=== PATIENT | female | born 1995 | race Two or more races ===

== ENCOUNTER 2017-05-08 18:40 | Emergency (ER) | payer MEDICAID ==
[~2017-05-08] VITALS: Ht 167.6 cm; Wt 64.5 kg
[2017-05-08 19:18] LABS: Basophils # (auto) 0 uL; Basophils % (auto) 0.5 % (0.0-2.0); Eosinophils # (auto) 0.1 uL; Eosinophils % (auto) 1.2 % (0.0-7.0); Hematocrit 40.4 % (36.0-46.0); Hemoglobin 13.4 g/dL (12.2-16.2); Lymphocytes # (auto) 2.2 uL; Lymphocytes % (auto) 28.1 % (10.0-50.0); Mean Corpuscular Hemoglobin 29.5 pg (28.0-32.0); Mean Corpuscular Hgb Conc. 33.1 g/dL (32.0-36.0); Mean Corpuscular Volume 89.2 fL (80.0-100.0); Mean Platelet Volume 9.1 fL (6.9-10.8); Monocytes # (auto) 0.5 uL; Monocytes % (auto) 6.6 % (0.0-12.0); Neutrophils % (auto) 63.6 % (37.0-80.0); Nucleated Red Blood Cells % 0.1 %; Platelet Count (auto) 237 10^3/uL (140-450); Red Cell Distribution Width 12.7 % (11.8-14.3); White Blood Cell 7.8 10^3/uL (4.4-10.8)
[2017-05-08 19:42] LABS: Albumin 4.3 g/dL (3.4-5.0); BUN/Creatinine Ratio 18.3; Bilirubin, Total 0.4 mg/dL (0.2-1.0); Calcium 8.8 mg/dL (8.5-10.1); Potassium 3.8 mmol/L (3.5-5.1); Total Protein 7.9 g/dL (6.4-8.2)
[2017-05-08 22:23] VITALS: BP 110/63
[2017-05-08] MEDS ORDERED: ACETAMINOPHEN 325 MG TAB PO ONE (22:45)
[2017-05-08] MEDS ORDERED: ONDANSETRON ODT 4 MG TAB PO ONE (23:15)
== END 2017-05-08 23:36 | disposition home or self-care (01) ==
LOC: ER 18:45
DX: N92.0 Excessive and frequent menstruation with regular cycle (principal); J45.909 Unspecified asthma, uncomplicated
CPT/HCPCS: 36415; 76856; 80053; 84702; 85025; 99285; Q0162

== ENCOUNTER 2017-06-01 11:58 | Emergency (ER) | payer MEDICAID ==
[~2017-06-01] VITALS: Ht 167.6 cm; Wt 63.0 kg
[2017-06-01] MEDS ORDERED: KETOROLAC TROMETH 60MG/2ML VIAL IM ONE (13:15)
[2017-06-01 16:22] VITALS: BP 108/27
== END 2017-06-01 16:33 | disposition home or self-care (01) ==
LOC: ER 11:58
DX: S20.212A Contusion of left front wall of thorax, initial encounter (principal); E07.89 Other specified disorders of thyroid; J45.909 Unspecified asthma, uncomplicated; W19.XXXA Unspecified fall, initial encounter; Y93.89 Activity, other specified; Y99.8 Other external cause status; Y92.89 Other specified places as the place of occurrence of the external cause
CPT/HCPCS: 71101; 96372; 99284; J1885

== ENCOUNTER 2018-10-08 21:05 | Observation (INO) | payer MEDICAID ==
[2018-10-08 23:32] LABS: Basophils # (auto) 0.1 uL; Basophils % (auto) 0.7 % (0.0-2.0); Eosinophils # (auto) 0.1 uL; Eosinophils % (auto) 0.7 % (0.0-7.0); Hematocrit 34.5 % (36.0-46.0); Hemoglobin 11.8 g/dL (12.2-16.2); Lymphocytes # (auto) 1.9 uL; Lymphocytes % (auto) 16.7 % (10.0-50.0); Mean Corpuscular Hemoglobin 31.3 pg (28.0-32.0); Mean Corpuscular Hgb Conc. 34.2 g/dL (32.0-36.0); Mean Corpuscular Volume 91.3 fL (80.0-100.0); Monocytes # (auto) 0.6 uL; Monocytes % (auto) 5.4 % (0.0-12.0); Neutrophils # (auto) 8.8 uL; Neutrophils % (auto) 76.5 % (37.0-80.0); Platelet Count (auto) 214 10^3/uL (140-450); Red Blood Cells 3.78 10^6/uL (4.0-5.20); White Blood Cell 11.5 10^3/uL (4.4-10.8)
[2018-10-08 23:45] LABS: INR 0.86 (0.9-1.15); Partial Thromboplastin Time 25.5 sec (23.78-33.04); Prothrombin Time 9.3 sec (9.27-12.13)
[2018-10-08 23:52] LABS: BUN/Creatinine Ratio 16.7; Calcium 8.2 mg/dL (8.5-10.1); Potassium 4.1 mmol/L (3.5-5.1)
[2018-10-08 23:55] LABS: Bilirubin, Total 0.1 mg/dL (0.2-1.0); Total Protein 6.5 g/dL (6.4-8.2)
[2018-10-08 23:58] LABS: Urine Amorphous Crystal FEW /hpf (None Seen); Urine Bacteria FEW /hpf (None Seen); Urine Blood Negative /uL (Negative); Urine Mucus FEW (None Seen); Urine WBC 1 /hpf (0 - 5)
[2018-10-09] MEDS ORDERED: PREN-153 OR (00:11)
[2018-10-10 08:06] LABS: RPR Non Reactive (Non Reactive)
[2018-10-10 11:06] LABS: Rubella Antibodies, IgG 1.25 index (Immune >0.99)
== END 2018-10-08 23:28 | disposition home or self-care (01) | DRG 566 ==
LOC: LDRP 21:05
PROVIDERS: ADMIT Specialist; ATTEND Specialist
DX: O99.89 Other specified diseases and conditions complicating pregnancy, childbirth and the puerperium (principal); M54.9 Dorsalgia, unspecified; M79.604 Pain in right leg; M79.605 Pain in left leg; O26.892 Other specified pregnancy related conditions, second trimester; R10.30 Lower abdominal pain, unspecified; N89.8 Other specified noninflammatory disorders of vagina; Z3A.20 20 weeks gestation of pregnancy
CPT/HCPCS: 36415; 59025; 76805; 80053; 81001; 81002; 85025; 85610; 85730; 86592; 86762; 86790; 86850; 86900; 86901; 87340; G0378

== ENCOUNTER 2018-10-16 15:15 | Observation (INO) | payer MEDICAID ==
[~2018-10-16 15:15] MED LIST: PREN-153 OR
== END 2018-10-16 16:30 | disposition home or self-care (01) | DRG 566 ==
LOC: LDRP 15:15
PROVIDERS: ADMIT Obstetrics & Gynecology; ATTEND Obstetrics & Gynecology
DX: O26.852 Spotting complicating pregnancy, second trimester (principal); O26.892 Other specified pregnancy related conditions, second trimester; R10.9 Unspecified abdominal pain; Z3A.21 21 weeks gestation of pregnancy
CPT/HCPCS: 59025; 76815; 81002; G0378

== ENCOUNTER 2018-11-11 02:05 | Observation (INO) | payer MEDICAID | END 2018-11-11 04:55 | disposition home or self-care (01) | DRG 566 | LOC: LDRP 02:05 | PROVIDERS: ADMIT Specialist; ATTEND Specialist | DX: O26.892 Other specified pregnancy related conditions, second trimester (principal); N89.8 Other specified noninflammatory disorders of vagina; R10.2 Pelvic and perineal pain; R11.0 Nausea; R10.31 Right lower quadrant pain; Z3A.25 25 weeks gestation of pregnancy | CPT/HCPCS: 59025; 76705; 81002; G0378 ==

== ENCOUNTER 2018-12-30 09:30 | Observation (INO) | payer MEDICAID ==
[~2018-12-30] VITALS: Ht 30.5 cm; Wt 0.5 kg
[2018-12-30] MEDS ORDERED: LACTATED RINGER'S 1,000 ML IV ONE (10:07)
[2018-12-30] MEDS ORDERED: BETAMETHASONE ACET (6MG/ML) 5ML VIAL ONE (10:11)
[2018-12-30] MEDS ORDERED: TERBUTALINE SULFATE 1 MG/ML 1ML VIAL SC ONE (10:11)
[2018-12-30] MEDS: TERBUTALINE SULFATE 1 MG/ML 1ML VIAL SC SCH ×2 (10:15→10:35)
[2018-12-30] MEDS ORDERED: NIFEdipine 10 MG CAP PO ONE (10:30)
[2018-12-30 13:22] LABS: Urine Bacteria MOD /hpf (None Seen); Urine Blood Negative /uL (Negative); Urine Mucus FEW (None Seen); Urine Specific Gravity 1.022 (1.001-1.035); Urine WBC 4 /hpf (0 - 5)
[2018-12-30] MEDS ORDERED: BETAMETHASONE ACET (6MG/ML) 5ML VIAL IM SCH (22:00)
[2018-12-31] MEDS ORDERED: NIF10C GT (19:02)
== END 2018-12-30 12:10 | disposition home or self-care (01) | DRG 563 ==
LOC: LDRP 09:30
PROVIDERS: ADMIT Specialist; ATTEND Specialist
DX: O60.03 Preterm labor without delivery, third trimester (principal); O26.853 Spotting complicating pregnancy, third trimester; O62.9 Abnormality of forces of labor, unspecified; Z3A.32 32 weeks gestation of pregnancy
CPT/HCPCS: 59025; 76818; 81001; 81002; 84443; 96372; G0378; J0702; J3105

== ENCOUNTER 2018-12-31 18:42 | Observation (INO) | payer MEDICAID ==
[~2018-12-31] VITALS: Ht 165.1 cm; Wt 81.6 kg
[2018-12-31] MEDS ORDERED: BETAMETHASONE ACET (6MG/ML) 5ML VIAL IM ONE (19:00)
[2018-12-31] MEDS ORDERED: NIF10C GT (19:02)
== END 2018-12-31 19:52 | disposition home or self-care (01) | DRG 563 ==
LOC: LDRP 18:42
PROVIDERS: ADMIT Specialist; ATTEND Specialist
DX: O60.03 Preterm labor without delivery, third trimester (principal); O46.93 Antepartum hemorrhage, unspecified, third trimester; O62.9 Abnormality of forces of labor, unspecified; Z3A.32 32 weeks gestation of pregnancy
CPT/HCPCS: 59025; 81002; 96372; G0378

== ENCOUNTER 2019-01-02 12:19 | Observation (INO) | payer MEDICAID ==
[~2019-01-02 12:19] MED LIST changes: +NIF10C GT
[2019-01-02] MEDS ORDERED: TERBUTALINE SULFATE 1 MG/ML 1ML VIAL SC ONE (13:30)
== END 2019-01-02 14:00 | disposition home or self-care (01) | DRG 563 ==
LOC: LDRP 12:19
PROVIDERS: ADMIT Obstetrics & Gynecology; ATTEND Obstetrics & Gynecology
DX: O60.03 Preterm labor without delivery, third trimester (principal); Z3A.32 32 weeks gestation of pregnancy
CPT/HCPCS: 59025; 81002; 96372; G0378; J3105

== ENCOUNTER 2019-01-04 20:24 | Observation (INO) | payer MEDICAID ==
[~2019-01-04] VITALS: Ht 165.1 cm; Wt 63.5 kg
[2019-01-04] MEDS ORDERED: TERBUTALINE SULFATE 1 MG/ML 1ML VIAL SC PRN (21:15)
[2019-01-04] MEDS ORDERED: NIFEdipine 10 MG CAP PO ONE (21:30)
== END 2019-01-04 22:34 | disposition home or self-care (01) | DRG 566 ==
LOC: LDRP 20:24
PROVIDERS: ADMIT Specialist; ATTEND Specialist
DX: O26.893 Other specified pregnancy related conditions, third trimester (principal); R10.9 Unspecified abdominal pain; Z3A.33 33 weeks gestation of pregnancy
CPT/HCPCS: 59025; 76818; 81002; G0378

== ENCOUNTER 2019-01-07 18:57 | Observation (INO) | payer MEDICAID | END 2019-01-07 21:10 | disposition home or self-care (01) | DRG 563 | LOC: LDRP 18:57 | PROVIDERS: ADMIT Obstetrics & Gynecology; ATTEND Obstetrics & Gynecology | DX: O60.03 Preterm labor without delivery, third trimester (principal); Z3A.33 33 weeks gestation of pregnancy | CPT/HCPCS: 59025; 76818; 81002; G0378 ==

== ENCOUNTER 2019-01-11 19:00 | Observation (INO) | payer MEDICAID ==
[~2019-01-11] VITALS: Ht 165.1 cm; Wt 81.6 kg
[2019-01-11] MEDS ORDERED: LACTATED RINGER'S 1,000 ML IV ONE (20:53)
[2019-01-11] MEDS ORDERED: TERBUTALINE SULFATE 1 MG/ML 1ML VIAL SC SCH (21:00)
== END 2019-01-11 22:30 | disposition home or self-care (01) | DRG 563 ==
LOC: LDRP 19:00
PROVIDERS: ADMIT Obstetrics & Gynecology; ATTEND Obstetrics & Gynecology
DX: O60.03 Preterm labor without delivery, third trimester (principal); E03.9 Hypothyroidism, unspecified; O99.283 Endocrine, nutritional and metabolic diseases complicating pregnancy, third trimester; O99.343 Other mental disorders complicating pregnancy, third trimester; F32.9 Major depressive disorder, single episode, unspecified; Z3A.34 34 weeks gestation of pregnancy
CPT/HCPCS: 59025; 76818; 81002; 96372; G0378; J3105; 96365

== ENCOUNTER 2019-02-07 02:01 | Observation (INO) | payer MEDICAID | END 2019-02-07 03:44 | disposition home or self-care (01) | DRG 566 | LOC: LDRP 02:01 | PROVIDERS: ADMIT Obstetrics & Gynecology; ATTEND Obstetrics & Gynecology | DX: O62.9 Abnormality of forces of labor, unspecified (principal); E03.9 Hypothyroidism, unspecified; O99.343 Other mental disorders complicating pregnancy, third trimester; F32.9 Major depressive disorder, single episode, unspecified; Z3A.38 38 weeks gestation of pregnancy; O99.283 Endocrine, nutritional and metabolic diseases complicating pregnancy, third trimester | CPT/HCPCS: 59025; 81002; G0378; 96365 ==

== ENCOUNTER 2019-02-09 08:36 | Observation (INO) | payer MEDICAID ==
[~2019-02-09] VITALS: Ht 165.1 cm; Wt 61.2 kg
== END 2019-02-09 09:39 | disposition home or self-care (01) | DRG 566 ==
LOC: LDRP 08:36
PROVIDERS: ADMIT Obstetrics & Gynecology; ATTEND Obstetrics & Gynecology
DX: O62.9 Abnormality of forces of labor, unspecified (principal); E03.9 Hypothyroidism, unspecified; O99.283 Endocrine, nutritional and metabolic diseases complicating pregnancy, third trimester; O99.343 Other mental disorders complicating pregnancy, third trimester; F99 Mental disorder, not otherwise specified; Z3A.38 38 weeks gestation of pregnancy
CPT/HCPCS: 59025; 81002; G0378

== ENCOUNTER 2019-02-11 07:23 | Observation (INO) | payer MEDICAID | END 2019-02-11 08:30 | disposition home or self-care (01) | DRG 566 | LOC: LDRP 07:23 | PROVIDERS: ADMIT Specialist; ATTEND Specialist | DX: O62.9 Abnormality of forces of labor, unspecified (principal); O99.343 Other mental disorders complicating pregnancy, third trimester; F32.9 Major depressive disorder, single episode, unspecified; O99.283 Endocrine, nutritional and metabolic diseases complicating pregnancy, third trimester; E03.9 Hypothyroidism, unspecified; Z3A.38 38 weeks gestation of pregnancy | CPT/HCPCS: 59025; 81002; G0378 ==

== ENCOUNTER 2019-02-13 17:15 | Observation (INO) | payer MEDICAID ==
[~2019-02-13 17:15] MED LIST changes: -NIF10C GT
== END 2019-02-13 18:50 | disposition home or self-care (01) | DRG 566 ==
LOC: LDRP 17:15
PROVIDERS: ADMIT Specialist; ATTEND Specialist
DX: O62.9 Abnormality of forces of labor, unspecified (principal); F32.9 Major depressive disorder, single episode, unspecified; O99.343 Other mental disorders complicating pregnancy, third trimester; Z3A.38 38 weeks gestation of pregnancy
CPT/HCPCS: 59025; 81002; G0378

== ENCOUNTER 2019-02-19 06:15 | Inpatient (IN) | payer MEDICAID ==
[2019-02-19] VITALS (14 sets, daily range): BP systolic 98–114; BP diastolic 43–67
[~2019-02-19] VITALS: Ht 165.1 cm; Wt 84.8 kg
[2019-02-19] MEDS: LACTATED RINGER'S 1,000 ML IV SCH ×3 (06:39→23:00)
[2019-02-19 07:27] LABS: Basophils # (auto) 0.1 uL; Basophils % (auto) 0.6 % (0.0-2.0); Eosinophils # (auto) 0 uL; Eosinophils % (auto) 0.3 % (0.0-7.0); Hemoglobin 12.3 g/dL (12.2-16.2); Lymphocytes # (auto) 2.3 uL; Lymphocytes % (auto) 23.3 % (10.0-50.0); Mean Corpuscular Hemoglobin 29.2 pg (28.0-32.0); Mean Corpuscular Hgb Conc. 33.3 g/dL (32.0-36.0); Mean Corpuscular Volume 87.5 fL (80.0-100.0); Monocytes # (auto) 0.5 uL; Monocytes % (auto) 5.6 % (0.0-12.0); Neutrophils # (auto) 6.8 uL; Neutrophils % (auto) 70.2 % (37.0-80.0); Nucleated Red Blood Cells % 0.1 %; Platelet Count (auto) 148 10^3/uL (140-450); Red Blood Cells 4.22 10^6/uL (4.0-5.20); White Blood Cell 9.7 10^3/uL (4.4-10.8)
[2019-02-19 07:40] LABS: Albumin 2.9 g/dL (3.4-5.0); BUN/Creatinine Ratio 14.9; Calcium 8.8 mg/dL (8.5-10.1); Potassium 3.7 mmol/L (3.5-5.1)
[2019-02-19 07:42] LABS: Bilirubin, Total 0.4 mg/dL (0.2-1.0); Total Protein 6.7 g/dL (6.4-8.2)
[2019-02-19 07:43] LABS: INR < 0.93 (0.9-1.15); Partial Thromboplastin Time 25.9 sec (23.64-32.05)
[2019-02-19 07:48] LABS: Urine Bacteria MANY /hpf (None Seen); Urine Blood Negative /uL (Negative); Urine Mucus FEW (None Seen); Urine Specific Gravity 1.026 (1.001-1.035); Urine WBC 109 /hpf (0 - 5)
[2019-02-19] MEDS ORDERED: TETRACAINE 1% INJ 2 ML VIAL IJ ONE (10:54)
[2019-02-19] MEDS ORDERED: MORPHINE SULF(PF) 0.5MG/ML 10ML VIAL ONE (10:59)
[2019-02-19] MEDS ORDERED: fentaNYL CITRATE 100 MCG/2 ML VL ONE (10:59)
[2019-02-19] MEDS ORDERED: MIDAZOLAM HCL 1MG/1ML-2 ML VIAL ONE (10:59)
[2019-02-19] MEDS ORDERED: LACT. RINGERS/OXYTOCIN 20UNITS 1,000 ML IV SCH (11:35)
[2019-02-19] MEDS ORDERED: OXYTOCIN 10 UNIT/ML 10ML VIAL ONE (11:40)
[2019-02-19] MEDS ORDERED: ceFAZolin 1GM VL ONE (11:40)
[2019-02-19] MEDS ORDERED: ONDANSETRON HCL 4 MG/2 ML VIAL IV PRN (11:45)
[2019-02-19] MEDS ORDERED: diphenhdrAMINE HCL 50 MG/1 ML VL IV PRN (11:45)
[2019-02-19] MEDS ORDERED: ceFAZolin 1GM/50ML 50 ML IV SCH (11:45)
[2019-02-19] MEDS ORDERED: NALOXONE HCL 0.4 MG/ML VIAL IV PRN (11:45)
[2019-02-19] MEDS ORDERED: MORPHINE SULFATE 4 MG/ML SYR/VIAL IV PRN (11:45)
[2019-02-19] MEDS ORDERED: DexAMETHasone SOD PHOS 10MG/1ML VIAL INJ IV PRN (11:45)
[2019-02-19] MEDS ORDERED: ePHEDrine SULFATE 50 MG/ML AMP IV PRN (11:45)
[2019-02-19] MEDS ORDERED: HYDROmorphone HCL 2 MG/ML VL IV PRN (11:45)
[2019-02-19] MEDS ORDERED: LABETALOL HCL 5 MG/ML 4ML SYRINGE IV PRN (11:45)
[2019-02-19] MEDS ORDERED: MIDAZOLAM HCL 1MG/1ML-2 ML VIAL IV PRN (11:45)
[2019-02-19] MEDS ORDERED: KETOROLAC TROMETH 15 mg/ml 1ML VL IV PRN (11:45)
[2019-02-19] MEDS: ONDANSETRON HCL 4 MG/2 ML VIAL IV PRN ×2 (12:32→16:15)
[2019-02-19] MEDS ORDERED: PROMETHAZINE HCL 25 MG/ML 1ML IM ONE (13:03)
[2019-02-19] MEDS ORDERED: PROMETHAZINE HCL 25 MG/ML 1ML ONE (13:05)
--- NOTE | 2019-02-19 13:20 | NUR ---
Post Op for LDRP: Received patient from PACU via bed to room 7B, report received from Sabine AUTOMATION CONTROL TECHNICIAN on stable patient. Patient A/A/Ox4, abdominal binder and bilateral SCD's are in place, IV fluids placed on pump and infusing per order, incisional site dressing clean/dry/intact and Vasquez Catheter to gravity draining clear yellow urine. Incentive Spirometer at bedside and instruction on proper use with return demonstration done by patient. Pts fundus is 1 below umbilicus, firm, scant rubra bleeding. Will continue to monitor.
[2019-02-19] MEDS ORDERED: ACETAMINOPHEN IV 1000 MG/100ML (10MG/ML) IV PRN (19:00)
[2019-02-19] MEDS: ceFAZolin 1GM/50ML 50 ML IV SCH (20:09)
[2019-02-19 20:21] LABS: Basophils # (auto) 0 uL; Basophils % (auto) 0.2 % (0.0-2.0); Eosinophils # (auto) 0 uL; Hemoglobin 11.7 g/dL (12.2-16.2); Lymphocytes # (auto) 1.1 uL; Mean Corpuscular Hemoglobin 29.5 pg (28.0-32.0); Mean Corpuscular Hgb Conc. 33.3 g/dL (32.0-36.0); Mean Corpuscular Volume 88.6 fL (80.0-100.0); Monocytes # (auto) 0.7 uL; Monocytes % (auto) 4.6 % (0.0-12.0); Neutrophils % (auto) 88.2 % (37.0-80.0); Platelet Count (auto) 131 10^3/uL (140-450); Red Blood Cells 3.96 10^6/uL (4.0-5.20); White Blood Cell 15.9 10^3/uL (4.4-10.8)
[2019-02-20] VITALS (9 sets, daily range): BP systolic 102–123; BP diastolic 47–71
--- NOTE | 2019-02-20 01:45 | NUR ---
Ambulation: Patient OOB with standby assistance by RN. Patient ambulated to bedside chair. Pericare provided with minimal assistance from patient. Clean gown provided and bed linen changed. Patient request to stay in chair for a while.
[2019-02-20] MEDS ORDERED: ACETAMINOPHEN IV 1000 MG/100ML (10MG/ML) IV PRN (03:30)
[2019-02-20] MEDS: ceFAZolin 1GM/50ML 50 ML IV SCH ×2 (03:50→12:45)
[2019-02-20] MEDS ORDERED: ACETAMINOPHEN IV 1000 MG/100ML (10MG/ML) IV ONE (05:30)
[2019-02-20 06:33] LABS: Basophils # (auto) 0 uL; Basophils % (auto) 0.2 % (0.0-2.0); Eosinophils # (auto) 0 uL; Eosinophils % (auto) 0.3 % (0.0-7.0); Hematocrit 34.1 % (36.0-46.0); Hemoglobin 11.6 g/dL (12.2-16.2); Lymphocytes # (auto) 1.7 uL; Lymphocytes % (auto) 14.4 % (10.0-50.0); Mean Corpuscular Hemoglobin 29.9 pg (28.0-32.0); Mean Corpuscular Hgb Conc. 33.9 g/dL (32.0-36.0); Mean Corpuscular Volume 88.2 fL (80.0-100.0); Monocytes # (auto) 0.8 uL; Monocytes % (auto) 6.7 % (0.0-12.0); Neutrophils # (auto) 9.2 uL; Neutrophils % (auto) 78.4 % (37.0-80.0); Platelet Count (auto) 130 10^3/uL (140-450); Red Blood Cells 3.87 10^6/uL (4.0-5.20); Red Cell Distribution Width 13.9 % (11.8-14.3); White Blood Cell 11.8 10^3/uL (4.4-10.8)
[2019-02-20 08:07] LABS: RPR Non Reactive (Non Reactive)
[2019-02-20] MEDS ORDERED: SIMETHICONE 80 MG CHEWABLE TABLET PO PRN (10:30)
[2019-02-20] MEDS ORDERED: HYDROcodone-ACET 5/325MG TAB PO PRN (10:30)
[2019-02-20] MEDS: HYDROcodone-ACET 5/325MG TAB PO PRN (10:40)
[2019-02-20] MEDS: DOCUSATE SOD 100 MG CAP PO SCH (10:45)
[2019-02-20] MEDS: IBUPROFEN 800 MG TAB PO PRN (15:37)
[2019-02-21] MEDS: DOCUSATE SOD 100 MG CAP PO SCH ×3 (01:32→21:54)
--- NOTE | 2019-02-21 02:10 | NUR ---
REPORT RECEIVED FROM Akash NOEL RN ON STABLE PATIENT, ASSUMING CARE. NO DISTRESS NOTED.
--- NOTE | 2019-02-21 02:25 | NUR ---
REPORT ON STABLE PT GIVEN TO Chandra AMEZCUA. RELINQUISHED CARE.
[2019-02-21 03:10] VITALS: BP 115/73
--- NOTE | 2019-02-21 03:14 | NUR ---
PT STATES SHE HAS PASSED FLATUS, DR. THOMPSON NOTIFIED, ADVANCING DIET PER DR. THOMPSON ORDER TO SOFT DIET. WILL CONTINUE TO MONITOR.
[2019-02-21] MEDS: HYDROcodone-ACET 5/325MG TAB PO PRN ×3 (03:28→21:55)
[2019-02-21 06:30] VITALS: BP 119/64
[2019-02-21] MEDS: IBUPROFEN 800 MG TAB PO PRN ×3 (06:34→23:22)
[2019-02-21 10:50] VITALS: BP 109/62
[2019-02-21 14:58] VITALS: BP 124/66
[2019-02-21] MEDS ORDERED: TETANUS-DIPTH-ACEL PERTUSSIS 0.5ML SYRG IM ONE (18:30)
[2019-02-21 19:00] VITALS: BP 128/69
--- NOTE | 2019-02-21 19:00 | NUR ---
IV removal IV DC'd with sterile technique, catheter fully intact. Pressure dressing applied to site. Patient tolerated procedure well.
[2019-02-21 22:54] VITALS: BP 109/69
[2019-02-22 02:51] VITALS: BP 114/70
[2019-02-22] MEDS: HYDROcodone-ACET 5/325MG TAB PO PRN (04:10)
--- NOTE | 2019-02-22 05:00 | NUR ---
Chandra Currie CNM at bedside, trent removed by CNM and steri strips applied.
[2019-02-22 06:50] VITALS: BP 119/71
--- NOTE | 2019-02-22 08:00 | NUR ---
Discharge: Discharge instructions given as ordered. Pt encouraged to follow up with CLIP AND HANGER ATTACHER as instructed. All questions and concerns addressed. Patient verbalized understanding. Medication reconciliation completed and copy given to patient. All required/requested vaccines given and copies of vaccinations given to patient. Patient encouraged to prepare to depart unit.
--- NOTE | 2019-02-22 09:05 | NUR ---
Discharge: Patient taken to vehicle ambulatory via steady gait, pt declined wheelchair with all personal belongings, accompanied by staff and family members. No distress noted at time of departure, no adverse changes in status since initial assessment.
== END 2019-02-22 09:05 | disposition home or self-care (01) | DRG 540 ==
LOC: LDRP 06:15
PROVIDERS: ADMIT Obstetrics & Gynecology; ATTEND Obstetrics & Gynecology
PROC: 3E0234Z Introduction of Serum, Toxoid and Vaccine into Muscle, Percutaneous Approach (ICD-10-PCS; 2019-02-19)
PROC: 10D00Z1 Extraction of Products of Conception, Low, Open Approach (ICD-10-PCS; principal; 2019-02-19 10:57)
DX: O36.63X0 Maternal care for excessive fetal growth, third trimester, not applicable or unspecified (principal); E03.9 Hypothyroidism, unspecified; Z23 Encounter for immunization; Z37.0 Single live birth; Z3A.39 39 weeks gestation of pregnancy; O99.284 Endocrine, nutritional and metabolic diseases complicating childbirth; O99.52 Diseases of the respiratory system complicating childbirth; J45.909 Unspecified asthma, uncomplicated
CPT/HCPCS: 36415; 51702; 59025; 80053; 81001; 84112; 85025; 85610; 85730; 86592; 86850; 86900; 86901; 90715; 96361; 96365; 96366; 96372; G0378; J0131; J0690; J2250; J2405; J2590

== ENCOUNTER 2019-06-28 14:40 | Emergency (ER) | payer MEDICAID ==
[~2019-06-28] VITALS: Ht 165.1 cm; Wt 74.4 kg
[2019-06-28 15:37] LABS: Basophils # (auto) 0 uL; Basophils % (auto) 0.6 % (0.0-2.0); Eosinophils # (auto) 0.1 uL; Eosinophils % (auto) 1.5 % (0.0-7.0); Hematocrit 38.5 % (36.0-46.0); Hemoglobin 12.9 g/dL (12.2-16.2); Lymphocytes # (auto) 1.4 uL; Lymphocytes % (auto) 19.3 % (10.0-50.0); Mean Corpuscular Hemoglobin 28.5 pg (28.0-32.0); Mean Corpuscular Hgb Conc. 33.4 g/dL (32.0-36.0); Mean Corpuscular Volume 85.4 fL (80.0-100.0); Monocytes # (auto) 0.3 uL; Monocytes % (auto) 4.5 % (0.0-12.0); Neutrophils # (auto) 5.5 uL; Neutrophils % (auto) 74.1 % (37.0-80.0); Nucleated Red Blood Cells % 0.1 %; Platelet Count (auto) 259 10^3/uL (140-450); Red Blood Cells 4.51 10^6/uL (4.0-5.20); Red Cell Distribution Width 13.1 % (11.8-14.3); White Blood Cell 7.4 10^3/uL (4.4-10.8)
[2019-06-28 17:06] VITALS: BP 126/52
== END 2019-06-28 17:10 | disposition home or self-care (01) ==
LOC: ER 14:47
DX: N93.8 Other specified abnormal uterine and vaginal bleeding (principal); R11.2 Nausea with vomiting, unspecified; J45.909 Unspecified asthma, uncomplicated; M54.5 Low back pain
CPT/HCPCS: 36415; 84702; 85025

== ENCOUNTER 2020-02-04 12:09 | Emergency (ER) | payer MEDICAID ==
[~2020-02-04] VITALS: Ht 167.6 cm; Wt 70.3 kg
[2020-02-04 12:27] VITALS: BP 118/70
== END 2020-02-04 13:13 | disposition home or self-care (01) ==
LOC: ER 12:09
DX: S91.341A Puncture wound with foreign body, right foot, initial encounter (principal); J45.909 Unspecified asthma, uncomplicated; E07.9 Disorder of thyroid, unspecified; W45.8XXA Other foreign body or object entering through skin, initial encounter; W25.XXXA Contact with sharp glass, initial encounter; Y93.89 Activity, other specified; Y92.89 Other specified places as the place of occurrence of the external cause; Y99.8 Other external cause status
CPT/HCPCS: 73620

== ENCOUNTER 2020-06-24 22:19 | Emergency (ER) | payer MEDICAID ==
[~2020-06-24] VITALS: Ht 165.1 cm; Wt 64.9 kg
[2020-06-24] MEDS ORDERED: ACETAMINOPHEN 325 MG TAB PO ONE (23:30)
[2020-06-24] MEDS ORDERED: cefTRIAXone SOD 1,000 MG VL IM ONE (23:30)
[2020-06-24] MEDS ORDERED: methylPREDNISolone SOD SUCC 125 MG/2 ML VL IM ONE (23:30)
[2020-06-24 23:40] VITALS: BP 119/81
== END 2020-06-25 00:01 | disposition home or self-care (01) ==
LOC: ER 22:21
DX: U07.1 COVID-19 (principal); J02.9 Acute pharyngitis, unspecified
CPT/HCPCS: 36415; 87426; 96372; 99284; C9803; J0696; J2930; U0003

== ENCOUNTER 2023-06-14 20:47 | Emergency (ER) | payer MEDICAID ==
[~2023-06-14] VITALS: Ht 167.6 cm; Wt 56.0 kg
[~2023-06-14 20:47] MED LIST changes: -PREN-153 OR; +PREN1TAB71 OR
[2023-06-14] MEDS ORDERED: SODIUM CHLORIDE 0.9% 1,000 ML IV ONE (21:15)
[2023-06-14] MEDS ORDERED: ONDANSETRON HCL 4 MG/2 ML VIAL IV ONE (21:15)
[2023-06-14 21:40] LABS: Basophils # (auto) 0 10 ^3/uL (0-0.2); Basophils % (auto) 0.2 % (0.0-2.0); Eosinophils # (auto) 0 10 ^3/uL (0-0.8); Eosinophils % (auto) 0.1 % (0.0-7.0); Hemoglobin 13.1 g/dL (12.2-16.2); Lymphocytes # (auto) 0.4 10 ^3/uL (0.4-5.4); Lymphocytes % (auto) 5.4 % (10.0-50.0); Mean Corpuscular Hemoglobin 30.2 pg (28.0-32.0); Mean Corpuscular Hgb Conc. 34.4 g/dL (32.0-36.0); Mean Corpuscular Volume 87.8 fL (80.0-100.0); Monocytes # (auto) 0.2 10 ^3/uL (0-1.3); Monocytes % (auto) 2.9 % (0.0-12.0); Neutrophils # (auto) 7.2 10 ^3/uL (1.6-8.6); Neutrophils % (auto) 91.4 % (37.0-80.0); Red Blood Cells 4.33 10^6/uL (4.0-5.20); Red Cell Distribution Width 14.2 % (11.8-14.3); White Blood Cell 7.8 10^3/uL (4.4-10.8)
[2023-06-14 21:57] LABS: Alanine Aminotransferase 14 U/L (7-40); Albumin 4.4 g/dL (3.2-4.8); Alkaline Phosphatase 58 U/L (46-116); Anion Gap 8 (5-15); Aspartate Aminotransferase 17 U/L (13-40); BUN/Creatinine Ratio 12.5 (10.0-20.0); Bilirubin, Total 0.8 mg/dL (0.2-1.0); Blood Urea Nitrogen 7 mg/dL (9-23); Calcium 8.9 mg/dL (8.7-10.4); Carbon Dioxide 23 mmol/L (20-30); Chloride 105 mmol/L (98-107); Glucose 83 mg/dL (74-106); Lipase 27 U/L (12-53); Potassium 3.6 mmol/L (3.5-5.1); Sodium 136 mmol/L (136-145); Total Protein 7.2 g/dL (5.7-8.2)
[2023-06-14 22:12] LABS: INR 0.94 (0.9-1.15); Partial Thromboplastin Time 27.1 SEC (24.5-34.5); Prothrombin Time 9.9 sec (9.3-11.8)
[2023-06-14 22:34] LABS: Urine Bacteria NONE SEEN /hpf (None Seen); Urine Blood Negative /uL (Negative); Urine Clarity HAZY (Clear); Urine Color Yellow (Yellow); Urine Mucus FEW (None Seen); Urine Protein, UAD 1+ (Negative); Urine Specific Gravity 1.031 (1.001-1.035); Urine WBC 2 /hpf (0 - 5)
[2023-06-14 23:37] VITALS: BP 109/60; PULSE 84; RESP 18; TEMP 98.2; O2SAT 100
== END 2023-06-14 23:38 | disposition home or self-care (01) ==
LOC: ER 20:47
DX: O20.8 Other hemorrhage in early pregnancy (principal); O21.8 Other vomiting complicating pregnancy; O99.512 Diseases of the respiratory system complicating pregnancy, second trimester; J45.909 Unspecified asthma, uncomplicated; E03.9 Hypothyroidism, unspecified; O99.282 Endocrine, nutritional and metabolic diseases complicating pregnancy, second trimester; R10.2 Pelvic and perineal pain; Z79.899 Other long term (current) drug therapy; Z3A.16 16 weeks gestation of pregnancy
CPT/HCPCS: 36415; 76805; 80053; 81001; 81025; 83690; 84702; 85025; 85610; 85730; 86850; 86900; 86901; 96361; 96374; 99285; J2405; J7030